=== PATIENT | male | born 1980 | race Two or more races ===

== ENCOUNTER 2022-07-06 17:18 | Emergency (ER) | payer SELFPAY ==
[~2022-07-06] VITALS: Ht 180.3 cm; Wt 118.2 kg
[2022-07-06 18:04] VITALS: BP 152/96
== END 2022-07-06 23:13 | disposition left against medical advice (07) ==
LOC: EMS 17:20 → EDBD 17:20 → EMS 23:13
DX: R11.10 Vomiting, unspecified (principal); R51.9 Headache, unspecified; Z53.21 Procedure and treatment not carried out due to patient leaving prior to being seen by health care provider
CPT/HCPCS: 99281; Z7502